=== PATIENT | female | born 2005 | race African-American/Black ===

== ENCOUNTER 2024-04-27 09:27 | Emergency (ER) | payer OTHER, SELFPAY ==
[2024-04-27 09:31] VITALS: BP 133/81; PULSE 87; RESP 15; TEMP 36.3; O2SAT 100; BMI 29.5
[2024-04-27] MEDS: 0.9% Normal Saline (1000mL) 1,000 ML 1000 ML IV (10:13)
[2024-04-27] MEDS: Ondansetron 4 MG/2 ML Vial IV (10:13)
[2024-04-27 10:19] LABS: Anion Gap 7 (5-15); BUN 12 mg/dL (7-18); BUN/Creat Ratio 16.6 RATIO (10-20); Calcium,Total 9.7 mg/dL (8.5-10.1); Chloride 109 mmol/L (98-107); Creatinine, Serum 0.72 mg/dL (0.55-1.02); EST Glomerular Filtration Rate 110 mL/min (>60); Est Glom Filt Rate - Afr Amer 133 mL/min (>60); Glucose 100 mg/dL (74-106); Potassium 3.4 mmol/L (3.5-5.1); Sodium Level 140 mmol/L (136-145)
--- NOTE | 2024-04-27 10:47 | EX.ED.DYSGE1 ---
HPI History of Present Illness Chief Complaint: Nausea/Vomiting Detail of Chief Complaint: Nausea vomiting as well as diarrhea Informant: patient Onset/Context/Timing Onset: Days (Illness started 5 days ago with nausea vomiting and diarrhea.) Context: Sudden Onset Timing: Intermittent Quality: GI symptoms Location: GI/abdomen Current Severity: Mild Maximum Severity: Moderate Worsened by: Diarrhea with eating Relieved by: Nothing Associated Symptoms Associated Symptoms: Thirst, dry mouth and orthostatic symptoms. Narrative Narrative: Patient is a 18-year-old female. She was seen in urgent care. Patient informed triage she wants test. She has vomited 3-4 times since the onset of her illness. She has had numerous amounts of loose watery stool with mucus. There is no blood. There is no history of Crohn's or ulcerative colitis. She has not been on antibiotic in the past month. She denies fever, chills night sweats. She does endorse thirst, dry mouth and lightheadedness with standing. She denies headache. She denies visual changes. She denies auditory symptoms. She denies respiratory symptoms. She does endorse decreased urine output. She has not noted change in the color of her urine. She, otherwise, has no urinary symptoms. Prior similar symptoms: No Recent Illness/Hospitalization: No PFSH PFSH Medical History no medical history no medical history Home Medications ?Medication ?Instructions ?Recorded ?Last Taken ?Type ondansetron 4 mg disintegrating 4 mg PO Q8H PRN PRN Nausea #5 tabs 04/27/24 Unknown Rx tablet Allergy/AdvReac Type Severity Reaction Status Date / Time sulfamethoxazole (From Allergy Mild Vomiting Verified 04/27/24 09:31 Bactrim) trimethoprim (From Bactrim) Allergy Mild Vomiting Verified 04/27/24 09:31 Family History no significant family his Surgical History no surgical history no surgical history Social History (Updated 04/27/24 @ 10:[address] Charlie Mtz MD) household members: family Smoking Status: Never smoker alcohol intake: never substance use type: marijuana ROS ROS ED Constitutional Constitutional ED: Reports subjective; Denies chills, fever(s) or sweats Eyes Eyes: Denies blurry vision or change in vision ENT ENT ED: Denies ear pain, rhinorrhea or sore throat Cardiovascular Cardiovascular: Denies chest pain or palpitations Respiratory/Chest Respiratory/Chest: Denies cough, dyspnea or dyspnea on exertion Gastrointestinal Gastrointestinal: Reports abdominal pain, diarrhea, nausea and vomiting; Denies constipation or melena Genitourinary Genitourinary ED: Reports other Details: Decreased urine output. ; Denies dysuria, hematuria or urinary frequency Musculoskeletal Musculoskeletal: Reports arthralgias and myalgias; Denies back pain Integumentary Denies Abrasions or rash Neurologic Neurologic: Denies headache(s) or paresthesias Psychiatric Psychiatric: Denies anxiety or depression Hematologic/Lymphatic Hematologic/Lymphatic: Reports systems reviewed and no addt'l complaints, except as documented EXAM Physical Exam Const Vital Signs: 04/27/24 09:31 Temperature 97.4 F L Temperature Source Temporal Pulse Rate 87 Respiratory Rate 15 Blood Pressure 133/81 H Blood Pressure Mean 98 Pulse Ox 100 Oxygen Delivery Method Room Air Positive well nourished and well developed General Appearance ED: well developed and NAD; Negative for cyanotic, diaphoretic or pallor HEENT Reports dry mucous membranes HEENT Narrative: Head is atraumatic and normocephalic. Ears normal. Patient has piercing of her nose. Uvula is midline. No deviation tongue with protrusion. Mouth ED: Yes dry mucous membranes Mouth: dry mucous membranes Eyes PERRL and EOMs intact bilaterally General Eye ED: Negative for pale conjunctiva or scleral icterus Neck no lymphadenopathy, supple and no JVD Resp normal respiratory effort and clear to auscultation bilaterally Cardio regular rate, regular rhythm, S1 normal heart sound, S2 normal heart sound and no murmurs GI normal to inspection, nondistended, normoactive bowel sounds, non-tender, non-distended and no masses; Negative for hepatosplenomegaly Palpation: soft Back/Spine no CVA tenderness Extremity normal to inspection General Extremety ED: Negative for edema or tenderness General Extremity: Negative for edema Neuro oriented x3 and CN's II-XII intact bilaterally Sensorium / Orientation: alert Psych Psych Narrative: Affect is flat. Skin no rashes or lesions noted, no wounds and skin turgor normal General Skin Exam: elasticity normal; Negative for jaundice or pallor MDM MDM MDM Narrative Medical decision making narrative: Clinically patient appears dehydrated. 1 L of normal saline was ordered. Patient was ordered Zofran for her nausea and vomiting. BMP was obtained to assess renal function and evaluate for hypokalemia since she reports numerous loose watery stools. There are no prior records or labs for comparison. History & Record Review Additional record(s) reviewed:: No prior records Lab Data Attestation: I reviewed the patient's lab results. Lab results narrative: Basic metabolic panel is remarkable for mild hypokalemia and mild hyperchloremia. Otherwise BMP is normal. Labs: Laboratory Results - last 24 hr 04/27/24 10:00 Sodium 140 Potassium 3.4 L Chloride 109 H Carbon Dioxide 24.0 Anion Gap 7 BUN 12 Creatinine 0.72 Estim Creat Clear Calc 150.80 Est GFR (MDRD) Af Amer 133 Est GFR (MDRD) Non-Af 110 BUN/Creatinine Ratio 16.6 Glucose 100 Calcium 9.7 Treatment and Re-Evaluation :: Patient was reassessed at 1229. She is sitting up. She is smiling. She states she feels better. She was informed of results and discharged to home. Discharge Plan Triage Chief Complaint: Nausea/Vomiting ED Provider: Charlie Mtz Dx/Rx/DC Orders Clinical Impression: Nausea, vomiting and diarrhea, Acute generalized abdominal pain, Acute hypokalemia, Dehydration, mild Instructions: ED Vomit Diarrhea Nonspec Adult Prescriptions: New ondansetron 4 mg tablet,disintegrating 4 mg PO Q8H PRN PRN (Reason: Nausea) Qty: 5 0RF Primary Care Provider: MARY ARCHER Referrals: MARY ARCHER [Other] - 1 Week if not improving Activity Restrictions/Additional Instructions: 1. Increase fluid intake 2. Take Imodium for diarrhea Print Language: Belarusian Disposition Disposition: Home, Self Care
[2024-04-27 12:45] VITALS: BP 133/81; PULSE 87; RESP 15; TEMP 36.3; O2SAT 100
== END 2024-04-27 12:51 | disposition home or self-care (01) ==
PROVIDERS: Emergency Provider Emergency Medicine; Visit Provider Emergency Medicine
DX: R11.2 Nausea with vomiting, unspecified (principal); E86.0 Dehydration; E87.6 Hypokalemia; R10.9 Unspecified abdominal pain; R19.7 Diarrhea, unspecified; F12.90 Cannabis use, unspecified, uncomplicated
CPT/HCPCS: 80048; 96361; 96374; 99283; A4216; J2405

== ENCOUNTER 2024-04-28 01:34 | Emergency (ER) | payer OTHER, SELFPAY ==
[2024-04-28 01:34] VITALS: BP 131/75; PULSE 81; RESP 18; TEMP 36.8; O2SAT 100; BMI 27.7
--- NOTE | 2024-04-28 01:43 | EDS_ITS ---
HPI HPI - GI History of Present Illness Chief Complaint: Nausea/Vomiting/Diarrhea Informant: patient Nausea/Vomiting/Emesis GI Symptom: Positive for Nausea and Vomiting Onset: Days (4) Quality: Positive for Nonbilious; Negative for Blood streaks, Coffee ground or Hematemesis Diarrhea/Melena/Hematochezia GI Symptom: Positive for Diarrhea; Negative for Melena or Hematochezia Stool Quality: Positive for Watery Associated Symptoms Associated Symptoms: Positive for Frequency; Negative for Dysuria or Hematuria LMP: Current Narrative Narrative: Patient presents with nausea and vomiting for the past 4 days. Patient states she was seen here earlier today and was told she had a viral infection. Patient states she was given prescription for Zofran. Patient states she took 2 doses of this at home with no improvement. Patient states she is still unable to keep anything down. Patient admits to some diarrhea. Patient states it is watery. Patient denies any melena or hematochezia. Patient admits to some urinary frequency but denies any dysuria or hematuria. Patient denies any fevers or chills. PFSH PFSH Medical History Asthma Home Medications ?Medication ?Instructions ?Recorded ?Last Taken ?Type ondansetron 4 mg disintegrating 4 mg PO Q8H PRN PRN Nausea #5 tabs 04/27/24 Unknown Rx tablet promethazine 25 mg rectal 25 mg RECTAL Q6H PRN PRN Nausea ##6 04/28/24 Unknown Rx suppository (Promethegan) Allergy/AdvReac Type Severity Reaction Status Date / Time sulfamethoxazole (From Allergy Mild Vomiting Verified 04/28/24 01:37 Bactrim) trimethoprim (From Bactrim) Allergy Mild Vomiting Verified 04/28/24 01:37 Surgical History no surgical history no surgical history Social History household members: family Smoking Status: Never smoker alcohol intake: never substance use type: marijuana ROS ROS ED Constitutional Constitutional ED: Reports chills; Denies fever(s) Eyes Eyes: Denies blurry vision or change in vision ENT ENT ED: Denies rhinorrhea or sore throat Cardiovascular Cardiovascular: Denies chest pain or palpitations Respiratory/Chest Respiratory/Chest: Denies cough or dyspnea Gastrointestinal Gastrointestinal: Reports diarrhea, nausea and vomiting Genitourinary Genitourinary ED: Denies dysuria or hematuria Musculoskeletal Musculoskeletal: Denies back pain or neck pain Integumentary Denies abscess or rash Neurologic Neurologic: Denies headache(s) or weakness Allergic/Immunologic Allergic/Immunologic ED: Denies mouth swelling or urticaria EXAM Physical Exam Const Vital Signs: 04/28/24 01:34 Temperature 98.2 F Temperature Source Oral Pulse Rate 81 Respiratory Rate 18 Blood Pressure 131/75 H Blood Pressure Mean 93 Pulse Ox 100 Oxygen Delivery Method Room Air Positive well nourished and well developed General Appearance ED: well developed and NAD HEENT Reports moist mucous membranes normocephalic Neck supple and no JVD Resp normal respiratory effort and clear to auscultation bilaterally Cardio regular rate and regular rhythm GI non-tender and non-distended Palpation: soft Neuro CN's II-XII intact bilaterally, moves all extremities and no sensory deficits noted Sensorium / Orientation: alert Motor Exam: strength 5/5 throughout Psych mental status grossly normal MDM MDM MDM Narrative Medical decision making narrative: Differential diagnosis includes gastroenteritis, viral illness, , dehydration, and electrolyte abnormality. CBC will be obtained to assess for leukocytosis and anemia. Basic metabolic profile will be obtained to assess for electrolyte abnormality and renal function. Serum hCG will be obtained to assess for . Lab Data Attestation: I reviewed the patient's lab results. Lab results narrative: CBC was reviewed and was within normal limits. Basic metabolic profile was reviewed and was within normal limits. Serum hCG was reviewed and was negative. Labs: Laboratory Results - last 24 hr 04/28/24 03:00 WBC 9.6 RBC 3.76 L Hgb 10.0 L Hct 30.4 L MCV 80.9 L MCH 26.6 L MCHC 32.9 RDW Std Deviation 40.1 RDW Coeff of Cecilia 13.8 Plt Count 209 MPV 10.4 Immature Gran % (Auto) 0.300 Neut % (Auto) 83.3 H Lymph % (Auto) 10.4 L [place] % (Auto) 5.3 Eos % (Auto) 0.2 Baso % (Auto) 0.5 Absolute Neuts (auto) 8.0 H Absolute Lymphs (auto) 0.99 Nucleated RBC % 0.2 Sodium 138 Potassium 3.5 Chloride 110 H Carbon Dioxide 21.0 Anion Gap 8 BUN 11 Creatinine 0.84 Estim Creat Clear Calc 125.57 Est GFR (MDRD) Af Amer 111 Est GFR (MDRD) Non-Af 92 BUN/Creatinine Ratio 13.0 Glucose 91 Calcium 9.3 Serum , Qual NEGATIVE Treatment and Re-Evaluation :: Patient was given IV fluids and Phenergan. Patient was advised of her findings. Patient was given a prescription for Phenergan suppositories. Patient was instructed to follow-up with her primary care physician in 5 to 7 days. Patient was instructed to start with a liquid diet and advance as tolerated. Patient was instructed to return if worse in any way. Patient understood and was agreeable with the plan. All questions were answered. Discharge Plan Triage Chief Complaint: Nausea/Vomiting/Diarrhea ED Provider: Osvaldo Bazan Dx/Rx/DC Orders Clinical Impression: Nausea, vomiting and diarrhea, Dehydration, mild Instructions: ED Vomiting (Adult) Prescriptions: New promethazine [Promethegan] 25 mg suppository 25 mg RECTAL Q6H PRN PRN (Reason: Nausea) Qty: 6 0RF No Action ondansetron 4 mg tablet,disintegrating 4 mg PO Q8H PRN PRN (Reason: Nausea) Qty: 5 0RF Primary Care Provider: MARY ARCHER Referrals: MARY ARCHER [Other] - 3-5 Days NOT,DEFINED [Non-Staff] - Print Language: Turkish Disposition Disposition: Home, Self Care
[2024-04-28] MEDS: 0.9% Normal Saline (1000mL) 1,000 ML 999 ML IV (02:54)
[2024-04-28] MEDS: proMETHazine 25 MG/ML Syringe 6.25 MG IM (02:54)
[2024-04-28 03:25] LABS: Internal QC Validated? YES +Cl - CLEAR BKGD; Pregnancy, Serum, hCG Quali. NEGATIVE Negative
[2024-04-28 03:29] LABS: Anion Gap 8 (5-15); BUN 11 mg/dL (7-18); Calcium,Total 9.3 mg/dL (8.5-10.1); Chloride 110 mmol/L (98-107); Creatinine, Serum 0.84 mg/dL (0.55-1.02); EST Glomerular Filtration Rate 92 mL/min (>60); Est Glom Filt Rate - Afr Amer 111 mL/min (>60); Estimated Creatinine Clearance 125.57 ml/min; Glucose 91 mg/dL (74-106); Potassium 3.5 mmol/L (3.5-5.1); Sodium Level 138 mmol/L (136-145)
[2024-04-28 03:34] VITALS: PULSE 65; RESP 18; O2SAT 98
[2024-04-28 03:41] LABS: Absolute Lymphocyte Count 0.99 X10^3/uL (0.83-4.51); Basophil# 0.05 X10^3/uL; Basophil% 0.5 % (0-1); Differential Indicated SCAN CRITERIA MET; Eosinophil# 0.02 X10^3/uL; Eosinophils% 0.2 % (0-5); Hematocrit 30.4 % (37-47); Lymphocyte # 0.99 X10^3/ul (0.83-4.51); Lymphocyte % 10.4 % (19-41); Mean Corp Hgb Conc 32.9 g/dL (32-36); Mean Corpuscular Hgb 26.6 pg (27.0-32.0); Mean Corpuscular Volume 80.9 fL (81-99); Mean Platelet Vol. 10.4 fl (6.2-12.0); Monocyte# 0.51 X10^3/uL; Monocyte% 5.3 % (0-10); NRBC Flagged by Analyzer 0.2 % (0-5); Neutrophil # 7.95 X10^3/uL (2.7-7.7); Neutrophil % 83.3 % (47-70); POSITIVE COUNT YES; Platelet Count 209 K/mm3 (150-450); RBC Distribution Width CV 13.8 % (11.6-14.6); RBC Distribution Width SD 40.1 fl (35.1-43.9); Red Blood Count 3.76 M/mm3 (4.2-5.4); White Blood Count 9.6 K/mm3 (4.4-11.0)
== END 2024-04-28 04:16 | disposition home or self-care (01) ==
PROVIDERS: Emergency Provider Emergency Medicine; Visit Provider Emergency Medicine
DX: R11.2 Nausea with vomiting, unspecified (principal); E86.0 Dehydration; R35.0 Frequency of micturition; R19.7 Diarrhea, unspecified; F12.90 Cannabis use, unspecified, uncomplicated
CPT/HCPCS: 80048; 84703; 85025; 96360; 96372; 99283; A4216